=== PATIENT | female | born 1965 | race Caucasian/White ===

== ENCOUNTER 2023-06-26 07:06 | Emergency (ER) | payer MEDICAID ==
[~2023-06-26] VITALS: Ht 157.5 cm; Wt 65.0 kg
[2023-06-26 08:08] VITALS: BP 115/82; PULSE 93; RESP 18; TEMP 98.1; O2SAT 97
[2023-06-26] MEDS ORDERED: HYDROcodone-ACET 10/325MG TAB PO ONE (09:00)
[2023-06-26] MEDS ORDERED: LIDOCAINE 5% TOPICAL PATCH TOP ONE (09:30)
[2023-06-26] MEDS ORDERED: IBUP-1454 PO (10:27)
[2023-06-26] MEDS ORDERED: METH-1181 PO (10:27)
== END 2023-06-26 10:28 | disposition home or self-care (01) ==
LOC: ER 07:06
DX: M25.551 Pain in right hip (principal); W01.0XXA Fall on same level from slipping, tripping and stumbling without subsequent striking against object, initial encounter; Y93.89 Activity, other specified; Y92.096 Garden or yard of other non-institutional residence as the place of occurrence of the external cause; Y99.8 Other external cause status
CPT/HCPCS: 73502